=== PATIENT | female | born 1985 | race Two or more races ===

== ENCOUNTER 2024-10-28 17:07 | Emergency (ER) | payer OTHER, SELFPAY ==
[2024-10-28 17:08] VITALS: BMI 36.3
[2024-10-28 17:38] VITALS: BP 160/91; PULSE 85; RESP 18; TEMP 36.9; O2SAT 98
--- NOTE | 2024-10-28 17:51 | EKG_ITS ---
[facility] Test Date: 2024-10-28 Pat Name: JOSE GALICIA Department: Room: - Gender: Female [employer]: : 1985 Requested By: Willie Ballesteros Order Number: [id number] Reading MD: Willie Ballesteros Measurements Intervals [place] Rate: 62 P: VT: QRS: -14 QRSD: 81 T: 21 QT: 413 QTc: 420 Interpretive Statements SINUS RHYTHM WITH 2ND DEGREE AV BLOCK, 2:1 OR MOBITZ TYPE II POSSIBLE RIGHT VENTRICULAR CONDUCTION DELAY [RSR (QR) IN V1/V2] VOLTAGE CRITERIA FOR LVH [MEETS CRITERIA IN ONE OF: R(aVL), S(V1), R(V5), R(V5/V6)+S(V1)] NONSPECIFIC T-WAVE ABNORMALITY CRITICAL TEST RESULT No previous ECG available for comparison /store/S0/[id number]/[id number].pdf
--- NOTE | 2024-10-28 17:53 | PD.EDCHEST ---
ED Chest Pain RME/HPI General Chief Complaint: Chest Pain Stated Complaint: CHEST PAIN GOING TO R) BREAST Time Seen by Provider: 10/28/24 17:39 Source: patient Arrival date/time: 10/28/24 17:07 Mode of arrival: ambulatory Limitations: no limitations RME / HPI RME / HPI narrative: 38-year-old female presents for evaluation of a painful mass in her right lateral breast x 3 weeks. Patient describes it as firm with radiation to her right axilla. Patient denies fever, chills, weight loss, shortness of breath, chest pain at rest, substernal chest pain, weakness, headache, nausea, leg swelling, vomiting, arm pain, jaw pain. Patient reports similar pain x 2 years ago but states she did not have the breast tissue mass at that time. Patient states she has not had a mammogram and has not been evaluated for this concern by her primary care provider. Patient denies recent change in her symptoms. Patient denies recent surgery. No known family history of breast cancer. Duration: intermittent Pain location: right chest Severity: moderate Quality: sharp Pain radiation: other (Right axilla.) Relieving factors: nothing Exacerbating factors: nothing Treatments prior to arrival chest pain: none Related Data On Oral Contraceptives: No Allergies Allergy/AdvReac Type Severity Reaction Status Date / Time No Known Allergies Allergy Verified 10/28/24 17:10 Review of Systems Constitutional Constitutional: Denies chills, Denies fever(s), Denies headache(s), Denies lethargy, Denies night sweats and Denies weakness Eyes Eyes: Denies blurry vision, Denies change in vision and Denies decreased night vision ENT Ears, Nose, Mouth, and Throat: Denies otalgia, Denies headache(s) and Denies vertigo Cardiovascular Cardiovascular: Reports chest pain, Denies diaphoresis, Denies dyspnea, Denies edema and Denies leg edema Respiratory Respiratory: Denies cough, Denies dyspnea, Denies excessive phlegm production, Denies hemoptysis and Denies wheezing Gastrointestinal Gastrointestinal: Reports as per HPI, Denies abdominal pain, Denies nausea and Denies vomiting Genitourinary Genitourinary: Denies dysuria and Denies hematuria Musculoskeletal Musculoskeletal: Denies back pain, Denies numbness, Denies stiffness and Denies tingling Integumentary/Breasts Skin/Breast: Denies dry skin, Reports new lesions, Denies pruritus, Denies skin swelling, Reports breast mass and Reports breast pain Neurologic Neurologic: Denies abnormal speech, Denies headache(s), Denies numbness, Denies tingling, Denies vertigo and Denies weakness Allergic/Immunologic Allergic/Immunologic: Denies wheezing Past Medical History Social History SMOKING STATUS: Never smoker ED Exam General Limitations: Present no limitations General appearance: Present alert and in no apparent distress Head Head exam: Present atraumatic and normocephalic Eye Eye exam: Present normal appearance and EOMI ENT ENT exam: Present normal oropharynx and mucous membranes moist Neck Neck exam: Present normal inspection and full ROM; Absent lymphadenopathy Chest Chest inspection: Present normal inspection, symmetric chest wall rise and tenderness (Right breast lateral to areola.) Respiratory Respiratory exam: Present normal lung sounds bilaterally; Absent respiratory distress or wheezes Cardiovascular Cardiovascular exam: Present regular rate and +S1; Absent irregular rhythm Abdominal Exam Abdominal exam: Present soft; Absent distention or tenderness Extremities Exam Extremities exam: Present normal inspection and full ROM Back Exam Back exam: Present normal inspection and full ROM Neurological Exam Neurological exam: Present alert and normal gait Psychiatric Psychiatric exam: Present normal affect Skin Skin exam: Present warm, dry and other (Small, nonmobile mass right breast tissue mid lateral to the areola. No overlying skin changes. Mildly tender to palpation.) Course Quality Measures none Orders Category Date Time Status EKG (ED ONLY) *Do not use* NOW Care 10/28/24 17:51 Completed EKG (ED Only) Stat Exams 10/28/24 17:51 Draft Ketorolac Inj [Toradol Inj] Med 10/28/24 17:51 Discontinued 30 mg IM X1 ONE Vital Signs Vital signs: Vital Signs Temperature 98.5 F 10/28/24 17:38 Pulse Rate 85 10/28/24 17:38 Respiratory Rate 18 10/28/24 17:38 Blood Pressure 160/91 H 10/28/24 17:38 Pulse Oximetry (%) 98 10/28/24 17:38 Oxygen Delivery Method Room Air 10/28/24 17:38 Pulse ox 98% on room air, within normal limits. Chest Pain MDM Narrative MDM Narrative:: 38-year-old female presented for with several weeks of right chest wall pain. Vital signs reassuring. PERC score 0 therefore less concern for PE at this time. Clinical picture did not fit ACS as patient endorsed focal pain with some radiation to her right axilla from a lesion in her right breast tissue. Given her lack of risk factors and reassuring clinical presentation cardiac workup was not performed today. EKG was unremarkable. Ultimately the patient was agreeable with plan to follow-up with primary care for further evaluation of the mass in her breast tissue. We discussed that she will likely need outpatient labs and imaging with possible biopsy. I stressed that she should come back if her pain worsens or she develops shortness of breath, radiating pain, worsening or change in her symptoms. Ultimately the patient was discharged with plan to follow-up with her PCP next week for further evaluation. Patient stable at time discharge. Patient data External records reviewed:: [facility] previous records Clinical information provided by:: patient Social determinants that could affect healthcare access:: none Patient has the following chronic illnesses:: None reported. How is presenting disease/condition affected by chronic disease/condition?: no chronic disease Evaluation data The following diagnostics were reviewed and interpreted by me:: other (specify) Lab and/or radiology exams considered but not ordered:: Considered not ordered. Interpretation Summary: Considered not ordered. Medications / Prescriptions Medications or Prescriptions considered but not ordered:: Considered not ordered. Medication administrations:: Medication Administration History Discontinued Medications Ketorolac Tromethamine (Ketorolac Inj 60 Mg/2 Ml Vial) 30 mg IM X1 ONE Stop: 10/28/24 17:52 Last Admin: 10/28/24 17:56 Dose: 30 mg Documented By: Considered not ordered. Consultations Consultation(s) initiated? (list below): No Diagnosis Chest Pain Differential Diagnosis: stable angina, atypical chest pain, chest pain, biliary colic and other (Mastitis, breast cancer.) Most likely diagnosis given after review of the tests above:: Chest wall pain. Admission Indicated Admission indicated?: not indicated Admission Request Was there a request for admission?: Yes Admission Attestation Admission request attestation: Discussed case with [] from Hospitalist service regarding admission. Discussed patients ED course, exam findings, labs, and radiology results. The Hospitalist [agrees,declines] to accept the patient for admission. Disposition Plan Disposition Plan: Discharge Discharge Attestation Discharge Attestation: The patient and all family members were given an opportunity to ask questions and understood the discharge instructions. Discharge instructions specifically effects, indications for sooner follow up or return to the emergency department, and the expected course of current diagnosis. Patient condition: Stable Discharge Plan Plan Patient Disposition: HOME (Self Care) Discharge Disposition comment: stable Problem List Clinical Impression: Chest wall pain Impression comment: Follow-up with primary care within the next week for further evaluation of painful lump in breast. Take ibuprofen or Tylenol as needed for pain. Return to the ED if your symptoms worsen or change. Patient/Caregiver Discharge Instructions Education Materials: ED Chest Pain, Uncertain Cause Print Language: Italian Stand Alone Forms: Bri Award Info., Patient Portal Info Letter PA/ARCHITECTURE DRAFTER Supervising Physician PA/ARCHITECTURE DRAFTER Supervising Physician: Dr. Pineda
[2024-10-28] MEDS: KETOROLAC INJ 60 MG/2 ML VIAL 30 MG IM (17:56)
== END 2024-10-28 18:09 | disposition home or self-care (01) ==
LOC: SERX 18:14
PROVIDERS: Emergency Provider Emergency Medicine
DX: R07.9 Chest pain, unspecified (principal); R07.89 Other chest pain; I44.1 Atrioventricular block, second degree
CPT/HCPCS: 96372; 99284; J1885